=== PATIENT | female | born 1955 | race Two or more races ===

== ENCOUNTER → 2016-12-07 | Outpatient (CLI) | payer BC ==
[2016-12-07 14:04] LABS: MEAN CORPUSCULAR HGB CONC 27.6 G/DL (32.0-36.0); MEAN CORPUSCULAR VOLUME 65 FL (80-99); MEAN PLATELET VOLUME 7.9 FL (6.5-10.1); PLATELET COUNT 496 K/UL (150-450); RED BLOOD COUNT 4.42 M/UL (4.20-5.40); RED CELL DISTRIBUTION WIDTH 16.8 % (11.6-14.8); WHITE BLOOD COUNT 8.3 K/UL (4.8-10.8)
[2016-12-07 14:14] LABS: HEMOGLOBIN A1C 5.8 % (< 6.0)
[2016-12-07 14:19] LABS: ALANINE AMINOTRANSFERASE 9 U/L (3-33); ALBUMIN/GLOBULIN RATIO 1.7 (1.0-2.7); ANION GAP 14 (5-15); ASPARTATE AMINO TRANSFERASE 14 U/L (5-40); CALCIUM 9.8 mg/dL (8.6-10.2); CARBON DIOXIDE 26 mEQ/L (20-30); CHLORIDE 99 mEQ/L (98-107); CREATININE 0.8 mg/dL (0.5-0.9); GLOMERULAR FILTRATION RATE > 60 mL/min (>60); HEMOLYSIS 0; SODIUM 139 mEQ/L (135-145); TOTAL PROTEIN 7.1 g/dL (6.6-8.7)
[2016-12-07 14:29] LABS: FERRITIN 5 ng/mL (13-150)
[2016-12-07 14:34] LABS: ANISOCYTOSIS 1+; BAND NEUTROPHILS % (MANUAL) 0 % (0-8); BASOPHILS % (MANUAL) 0 % (0-2); EOSINOPHILS % (MANUAL) 0 % (0-3); HYPOCHROMASIA 3+; LYMPHOCYTES % (MANUAL) 33 % (20-45); MICROCYTES 3+; NEUTROPHILS % (MANUAL) 63 % (45-75); PLATELET ESTIMATE ADEQUATE; TOTAL CELLS COUNTED 100
[2016-12-07 14:35] LABS: PLATELET MORPHOLOGY NORMAL
== END | disposition home or self-care (01) ==
LOC: LAB 13:21
DX: D50.9 Iron deficiency anemia, unspecified (principal); R73.01 Impaired fasting glucose; E66.9 Obesity, unspecified
CPT/HCPCS: 36415; 80053; 82306; 82728; 83036; 85007; 85025

== ENCOUNTER → 2016-12-14 | Outpatient (CLI) | payer BC ==
--- NOTE | 2016-12-14 14:25 | Diagnostic Imaging Report ---
Indication: History of a lung nodule Technique: Continuous helical transaxial imaging of the chest was obtained from the thoracic inlet to the upper abdomen. No intravenous contrast was administered. Coronal 2-D reformats were also obtained. Total Dose length Product (DLP): [address] Dose Index Volume (CTDIvol): 25 mGy Comparison: none Findings: We were asked to evaluate a lung nodule. I do not know the specifics of the nodule in question. Large hiatal hernia present. There is some mild compressive atelectasis at the adjacent lung. There is a calcified granuloma in superior segment of the left lower lobe (image 20, series 5). I do not know if this is the nodule in question. The remainder of the lungs are essentially clear. There is no consolidation to suggest pneumonia. No adenopathy is seen. The heart is unremarkable in appearance. Visualized upper abdomen is unremarkable. Impression: Moderate to large hiatal hernia. Calcified granuloma in the left lung. The CT scanner at [facility] is accredited by the [employer] and the scans are performed using protocols designed to limit radiation exposure to as low as reasonably achievable to attain images of sufficient resolution adequate for diagnostic evaluation.
--- NOTE | 2016-12-17 16:07 | Diagnostic Imaging Report ---
Indication: SCREEN Technique: Bilateral Craniocaudal and mediolateral oblique views were obtained. Comparison: 02/16/2016, 03/26/2014, 07/18/2012 Findings: The breasts are mostly fat. No parenchymal asymmetry nor architectural distortion. 4 mm nodular asymmetry in the right breast 10:00 position is unchanged. No new dominant masses nor suspicious clustered microcalcifications. No skin thickening nor nipple retraction. No axillary adenopathy. No significant interim change. Impression: No mammographic evidence of malignancy. Routine annual rescreening recommended. BI-RADS category 2-benign. Breast density BI-RADS type A
== END | disposition home or self-care (01) ==
LOC: MAMMO 10:05
DX: Z12.31 Encounter for screening mammogram for malignant neoplasm of breast (principal); R91.1 Solitary pulmonary nodule; K44.9 Diaphragmatic hernia without obstruction or gangrene
CPT/HCPCS: 71250; G0202; 77067